=== PATIENT | male | born 1975 | race American Indian/Alaskan Native ===

== ENCOUNTER 2019-02-26 02:56 | Emergency (ER) | payer SELFPAY ==
[2019-02-26 03:18] VITALS: RESP 14; O2SAT 100
--- NOTE | 2019-02-26 03:41 | ED PDOC ---
HPI: Skin/Bite Injury Time Seen by Provider: 02/26/19 03:20 Chief Complaint (Nursing): Bite Chief Complaint (Provider): scalp irritation History Per: Patient History/Exam Limitations: no limitations Onset/Duration Of Symptoms: Days (2) Current Symptoms Are (Timing): Still Present Quality Of Symptoms: Painful Additional Complaint(s): 43 y/o male presents for evaluation of painful bump to scalp x 2 days. Denies fever, drainage, trauma. Past Medical History Reviewed: Historical Data, Nursing Documentation, Vital Signs Vital Signs: Last Vital Signs Temp 98 F 02/26/19 03:16 Pulse 63 02/26/19 03:16 Resp 14 02/26/19 03:16 BP 137/86 02/26/19 03:16 Pulse Ox 100 02/26/19 03:16 - Medical History PMH: No Chronic Diseases Denies: HTN - Surgical History Surgical History: No Surg Hx - Family History Family History: States: Diabetes - Immunization History Hx Tetanus Toxoid Vaccination: No Hx Influenza Vaccination: No Hx Pneumococcal Vaccination: No - Home Medications Home Medications: Ambulatory Orders Medication Instructions Recorded Cephalexin [cephalexin] 500 mg PO QID #40 cap 12/19/18 Sulfamethoxazole/Trimethoprim 1 tab PO BID #20 tab 12/19/18 [Bactrim DS 800 mg-160 mg] Clindamycin [Cleocin] 300 mg PO QID #27 cap 02/26/19 - Allergies Allergies/Adverse Reactions: Allergies Allergy/AdvReac Type Severity Reaction Status Date / Time No Known Allergies Allergy Verified 02/26/19 03:15 Review of Systems ROS Statement: Except As Marked, All Systems Reviewed And Found Negative Skin: Positive for: Lesions Physical Exam - Reviewed Nursing Documentation Reviewed: Yes Vital Signs Reviewed: Yes - Physical Exam Appears: Positive for: Well, Non-toxic, No Acute Distress Head Exam: Positive for: ATRAUMATIC, NORMAL INSPECTION, NORMOCEPHALIC Skin: Positive for: Rash (scabbed lesion posterior scalp with underlying edema. + tender to touch. No active drainage, warmth, or erythema noted) Extremity: Positive for: Normal ROM Neurological/Psych: Positive for: Awake, Alert, Oriented (x3) - ECG O2 Sat by Pulse Oximetry: 100 - Progress ED Course And Treament: Patient educated on findings, discharged with rx clindamycin (dose given in ED) Advised warm compresses Follow up PMD within 2-3 days Return precautions given Disposition - Clinical Impression Clinical Impression: Boil, scalp - Patient ED Disposition Is Patient to be Admitted: No Counseled Patient/Family Regarding: Diagnosis, Need For Followup, Rx Given - Disposition Referrals: [facility] [Outside] Disposition: Routine/Home Disposition Time: 03:42 Condition: GOOD Additional Instructions: Apply warm compresses to affected area 3-5 times daily Prescriptions: Clindamycin [Cleocin] 300 mg PO QID #27 cap Instructions: Boil
[2019-02-26 06:47] VITALS: BP 128/81; PULSE 66; TEMP 98.2
== END 2019-02-26 04:50 | disposition home or self-care (01) ==
LOC: H.ER 02:56
DX: L02.821 Furuncle of head [any part, except face] (principal)